=== PATIENT | male | born 1970 ===

== ENCOUNTER → 2018-12-10 | Outpatient (CLI) | payer SELFPAY ==
--- NOTE | 2018-12-10 13:41 | PCVCIMAG ---
APPROVED REPORT Study performed: 12/10/2018 08:27:52 EXAM: Comprehensive 2D, Doppler, and color-flow Echocardiogram Patient Location: Echo lab Room #: 3Status: routine BSA: 1.99 HR: 100 bpmBP: 132/90 mmHg Rhythm: Tachycardia Other Information Study Quality: Adequate Indications Congestive Heart Failure Mitral Valve Disease CAD S/P 2 stents 2014 2D Dimensions IVSd: 5.92 (7-11mm)LVOT Diam: 21.56 (18-24mm) LVDd: 64.32 mm PWd: 6.90 (7-11mm)Ascending Ao: 29.61 (22-36mm) LVDs: 50.90 (25-40mm) Left Atrium: 39.57 (27-40mm) Aortic Root: 25.97 mm LV Single Plane 4CH: 38.93 % LV Single Plane 2CH: 27.40 % Biplane EF: 33.1 % Volumes Left Atrial Volume (Systole) Single Plane 4CH: 90.12 mLSingle Plane 2CH: 75.46 mL Biplane LA Volume: 91.00 mLLA ESV Index: 46.00 mL/m2 Aortic Valve AoV Peak Gucci.: 1.08 m/s AO Peak Gr.: 4.69 mmHgLVOT Max P.88 mmHg LVOT Max V: 0.85 m/s ALLISON Vmax: 2.86 cm2 Mitral Valve E/A Ratio: 1.2 MV Decel. Time: 72.40 ms MV E Max Gucci.: 0.65 m/s MV A Gucci.: 0.55 m/s MV PHT: 21.00 ms IVRT: 69.20 ms TDI E/Lateral E': 21.67E/Medial E': 6.50 Medial E' Gucci.: 0.10 m/s Lateral E' Gucci.: 0.03 m/s Pulmonary Valve PV Peak Gucci.: 0.83 m/sPV Peak Gr.: 2.73 mmHg Pulmonary Vein P Vein S: 0.40 m/sP Vein A: 0.40 m/s P Vein D: 0.51 m/sP Vein A Dur.: 78.4 msec P Vein S/D Ratio: 0.78 Tricuspid Valve TR Peak Gucci.: 2.31 m/s TR Peak Gr.: 21.31 mmHg TV Vmax: 0.50 m/sPA Pressure: 28.00 mmHg Left Ventricle Left ventricle is moderately dilated. There is global hypokinesis of the left ventricle. There is normal left ventricular wall thickness. Left ventricular systolic function is moderately decreased. LVEF is 30-35%. The diastolic function is abnormal. Findings suggest the left atrial pressure is elevated. Right Ventricle The right ventricle is normal size. The right ventricular systolic function is normal. Atria Left atrium is moderately dilated. Right atrium is moderately dilated. Aortic Valve Aortic valve is trileaflet. The aortic valve is normal in structure and function. No aortic regurgitation is present. There is no aortic valvular stenosis. Mitral Valve The mitral valve is normal in structure. Moderate mitral regurgitation. No evidence of mitral valve stenosis. Tricuspid Valve The tricuspid valve is normal in structure. Mild tricuspid regurgitation with a PA pressure of 28 mmHg. Pulmonic Valve The pulmonary valve is normal in structure. There is no pulmonic valvular regurgitation. Great Vessels The aortic root is normal in size. The ascending aorta is normal in size. Aortic arch is normal in caliber. IVC is normal in size and collapses >50% with inspiration. Pericardium There is no pericardial effusion. There is no pleural effusion. <Conclusion> Left ventricle is moderately dilated. There is global hypokinesis of the left ventricle. LVEF is 30-35%. The diastolic function is abnormal. Findings suggest the left atrial pressure is elevated. Left atrium is moderately dilated. Right atrium is moderately dilated. Aortic valve is trileaflet. The aortic valve is normal in structure and function. Moderate mitral regurgitation. Mild tricuspid regurgitation with a PA pressure of 28 mmHg. The aortic root is normal in size. There is no pericardial effusion.
== END | disposition home or self-care (01) ==
LOC: PCVCIMAG 12:04
PROVIDERS: ATTEND Internal Medicine Cardiovascular Disease
DX: I08.1 Rheumatic disorders of both mitral and tricuspid valves (principal); I25.10 Atherosclerotic heart disease of native coronary artery without angina pectoris; I42.9 Cardiomyopathy, unspecified; I50.9 Heart failure, unspecified; Z95.5 Presence of coronary angioplasty implant and graft
CPT/HCPCS: 93306